=== PATIENT | female | born 1950 | race Caucasian/White ===

== ENCOUNTER → 2024-03-18 12:50 | Outpatient (BNVA) | payer MEDICARE, MEDICAID, SELFPAY | PROVIDERS: PCP Internal Medicine; Referring Provider Internal Medicine; Visit Provider Surgery | DX: R10.13 Epigastric pain (principal) | CPT/HCPCS: 99203 ==

== ENCOUNTER 2025-06-24 00:51 | Outpatient (CLI) | payer MEDICARE, MEDICAID, SELFPAY ==
[2025-06-24 11:17] LABS: HCT 30.5 % (36.0-46.0); HGB 8.6 g/dL (11.2-15.7); MCH 26.1 pg (27.0-33.0); MCHC 28.2 % (32.0-36.0); MCV 92 fL (80-95); MPV 8.0 fL (8.0-11.0); Platelet Count 156 10^3/uL (130-400); RBC 3.30 10^6/uL (3.93-5.22); RDW 17.0 % (11.7-14.6); RDW-SD 56.4 fL
[2025-06-24 11:30] LABS: Abs Immature Grans 0.00 10^3/uL (0.0-0.06); Immature Grans % 0.0 %; RBC Morphology Normal
[2025-06-24 11:36] LABS: Uric Acid 4.7 mg/dL (3.1-7.8)
[2025-06-24 11:37] LABS: LDH 249 U/L (120-246)
[2025-06-24 11:38] LABS: ALT 13 U/L (10-49); AST 18 U/L (<34); Albumin 4.2 g/dL (3.2-5.0); Alkaline Phosphatase 161 U/L (46-116); Anion Gap 7.2 mmol/L (3-11); BUN 35 mg/dL (9-23); Bilirubin, Total 0.3 mg/dL (0.2-1.2); CO2 27.8 mmol/L (20.0-31.0); Calcium 9.2 mg/dL (8.3-10.6); Chloride 101 mmol/L (98-107); Glucose 98 mg/dL (74-106); Potassium 5.2 mmol/L (3.5-5.1); Sodium 136 mmol/L (136-145); Total Protein 6.9 g/dL (5.7-8.2)
== END 2025-06-24 00:52 | disposition home or self-care (01) ==
LOC: LBO 00:51
PROVIDERS: PCP Internal Medicine; Visit Provider Internal Medicine Hematology & Oncology
DX: C83.10 Mantle cell lymphoma, unspecified site (principal)
CPT/HCPCS: 36415; 80053; 83615; 84550; 85025

== ENCOUNTER 2025-07-08 12:02 | Outpatient (CLI) | payer MEDICARE, MEDICAID, SELFPAY ==
[2025-07-08 12:32] LABS: Abs Immature Grans 1.08 10^3/uL (0.0-0.06); HCT 34.2 % (36.0-46.0); HGB 9.0 g/dL (11.2-15.7); MCH 25.1 pg (27.0-33.0); MCHC 26.3 % (32.0-36.0); MCV 96 fL (80-95); RBC 3.58 10^6/uL (3.93-5.22); RDW 17.7 % (11.7-14.6); RDW-SD 59.5 fL
[2025-07-08 12:55] LABS: Hypochromasia 2+
[2025-07-08 13:07] LABS: Ferritin 138 ng/mL (7-271)
[2025-07-08 13:32] LABS: Iron 36 ug/dL (50-170); Total Iron Binding Capacity 257 ug/dL (250-425); Transferrin Sat 14 % (15-50)
[2025-07-08 13:58] LABS: ALT 10 U/L (10-49); AST 17 U/L (<34); Albumin 4.2 g/dL (3.2-5.0); Alkaline Phosphatase 144 U/L (46-116); Anion Gap 9.1 mmol/L (3-11); BUN 22 mg/dL (9-23); Bilirubin, Total 0.4 mg/dL (0.2-1.2); CO2 25.9 mmol/L (20.0-31.0); Calcium 9.3 mg/dL (8.3-10.6); Chloride 100 mmol/L (98-107); Glucose 94 mg/dL (74-106); LDH 233 U/L (120-246); Potassium 5.0 mmol/L (3.5-5.1); Sodium 135 mmol/L (136-145); Total Protein 6.8 g/dL (5.7-8.2); Uric Acid 3.9 mg/dL (3.1-7.8)
== END 2025-07-08 12:03 | disposition home or self-care (01) ==
LOC: LBO 12:02
PROVIDERS: PCP Internal Medicine; Visit Provider Internal Medicine Hematology & Oncology
DX: C83.18 Mantle cell lymphoma, lymph nodes of multiple sites (principal)
CPT/HCPCS: 36415; 80053; 82728; 83540; 83550; 83615; 84550; 85025